=== PATIENT | male | born 1990 | race Two or more races ===

== ENCOUNTER 2019-09-27 23:50 | Emergency (ER) | payer MEDICAID ==
[~2019-09-27] VITALS: Ht 180.3 cm; Wt 90.9 kg
[2019-09-28 01:47] VITALS: BP 122/83
== END 2019-09-28 01:58 | disposition home or self-care (01) ==
LOC: EMS 23:50
DX: F41.0 Panic disorder [episodic paroxysmal anxiety] (principal); R07.89 Other chest pain; R05 Cough; M79.10 Myalgia, unspecified site; F17.210 Nicotine dependence, cigarettes, uncomplicated; Z88.0 Allergy status to penicillin
CPT/HCPCS: 93005